=== PATIENT | female | born 1980 | race Caucasian/White ===

== ENCOUNTER 2017-07-06 20:11 | Outpatient (CLI) | payer MEDICAID ==
[~2017-07-06] VITALS: Ht 160 cm; Wt 83.2 kg
[~2017-07-06 20:11] MED LIST: MOTRIN 600600 MG/TAB PO; PERCOCET 325 MG1 TA2 PO; PRENATAL
[2017-07-06 20:34] VITALS: BP 128/80; PULSE 100; TEMP 98.1
[2017-07-06] MEDS ORDERED: LEXAPRO 10MG10 MG PO (20:34)
[2017-07-06 23:00] VITALS: BP 130/64; PULSE 70
== END 2017-07-06 23:15 | disposition home or self-care (01) ==
LOC: LDRO 20:11
DX: O62.9 Abnormality of forces of labor, unspecified (principal); Z3A.38 38 weeks gestation of pregnancy

== ENCOUNTER 2017-07-11 08:35 | Inpatient (IN) | payer MEDICAID ==
[~2017-07-11] VITALS: Ht 160 cm; Wt 82.7 kg
[~2017-07-11 08:35] MED LIST changes: +LEXAPRO 10MG10 MG PO
[2017-07-11] MEDS ORDERED: TYLENOL 500MG500 MG PO (21:09)
[2017-07-16] VITALS (34 sets, daily range): BP systolic 112–138; BP diastolic 57–93; PULSE 67–92; TEMP 97.9–98.8
[2017-07-16 11:14] LABS: BASO % 0.2 % (0.0-2.0); EOS # 0.2 (0.0-0.7); EOS % 1.4 % (0-4.0); GRAN # 8.2 (1.4-6.5); GRAN % 77.4 % (42.2-75.2); LYMPH # 1.5 (1.2-3.4); LYMPH % 14.6 % (20.0-51.0); MEAN CELL VOLUME 81 fl (80.0-100.0); MEAN CORPUSCULAR HGB CONC 33 g/dl (33.0-37.0); MEAN PLATELET VOLUME 11.8 fl (7.4-10.4); MONO # 0.6 (0.1-0.6); MONO % 5.9 % (1.7-9.3); PLATELET COUNT 165 K/mm3 (130-400); RED BLOOD COUNT 3.91 M/mm3 (4.10-5.30); WHITE BLOOD COUNT 10.5 K/mm3 (4.8-10.8)
[2017-07-16 11:15] LABS: HEMATOCRIT 31.6 % (37.0-47.0); HEMOGLOBIN 10.5 g/dl (12.5-16.0); MEAN CORPUSCULAR HEMOGLOBIN 27 pg (27.0-31.0)
[2017-07-16 12:16] LABS: AMPHETAMINE URINE NEGATIVE; BARBITURATES URINE NEGATIVE; BENZODIAZEPINES URINE NEGATIVE; BUPRENORPHINE URINE NEGATIVE; METHADONE URINE NEGATIVE; OPIATES URINE NEGATIVE; OXYCODONE URINE NEGATIVE; PHENCYCLIDINE URINE NEGATIVE; PROPOXYPHENE URINE NEGATIVE; THC CANNABINOIDS URINE POSITIVE; TRICYCLIC ANTIDEPRESS URINE NEGATIVE
[2017-07-17 04:00] VITALS: BP 126/78; PULSE 67; TEMP 98.3
[2017-07-17 06:48] VITALS: BP 127/75; PULSE 75; TEMP 97.3
[2017-07-17] MEDS ORDERED: IBU600 MG PO (08:20)
[2017-07-17] MEDS ORDERED: PERCOCET 325 MG1 TA2 PO (08:20)
[2017-07-17 16:51] VITALS: BP 126/64; PULSE 70; TEMP 98.6
== END 2017-07-17 18:30 | disposition home or self-care (01) | DRG 775 ==
LOC: LDR 07-16 06:44 → OB 07-16 10:20 → LDR 07-16 10:20 → OB 07-16 18:52 → LDR 08-25 08:35
PROVIDERS: Obstetrics & Gynecology
PROC: 10E0XZZ Delivery of Products of Conception, External Approach (ICD-10-PCS; principal; 2017-07-16)
PROC: 0HQ9XZZ Repair Perineum Skin, External Approach (ICD-10-PCS; 2017-07-16)
PROC: 3E033VJ Introduction of Other Hormone into Peripheral Vein, Percutaneous Approach (ICD-10-PCS; 2017-07-16)
DX: O99.324 Drug use complicating childbirth (principal); F12.90 Cannabis use, unspecified, uncomplicated; O99.334 Smoking (tobacco) complicating childbirth; F17.210 Nicotine dependence, cigarettes, uncomplicated; Z3A.39 39 weeks gestation of pregnancy; Z37.0 Single live birth
CPT/HCPCS: J2590; J7120

== ENCOUNTER 2017-07-11 20:40 | Outpatient (CLI) | payer MEDICAID ==
[~2017-07-11] VITALS: Ht 160 cm; Wt 82.7 kg
[2017-07-11 21:02] VITALS: BP 133/90; PULSE 111; TEMP 98
[2017-07-11] MEDS ORDERED: TYLENOL 500MG500 MG PO (21:09)
[2017-07-11 22:00] VITALS: BP 130/72; PULSE 88
[2017-07-11 23:03] VITALS: BP 127/75; PULSE 86; TEMP 98.3
== END 2017-07-11 23:20 | disposition home or self-care (01) ==
LOC: LDRO 20:40
DX: O62.9 Abnormality of forces of labor, unspecified (principal); Z3A.00 Weeks of gestation of pregnancy not specified